=== PATIENT | female | born 1985 ===

== ENCOUNTER 2020-02-18 06:43 | Day surgery (SDC) | payer OTHER ==
[2020-02-17 11:09] LABS: BLOOD UREA NITROGEN,BUN 14 mg/dL (7.0-18.0); CARBON DIOXIDE,CO2 27.4 mmol/L (21.0-32.0); CHLORIDE,CL 102 mmol/L (98-107); GLUCOSE RANDOM 98 mg/dL (74-106); POTASSIUM,K 3.9 mmol/L (3.5-5.1); SODIUM,NA 138 mmol/L (136-145)
[2020-02-18] MEDS ORDERED: fentaNYL 250 MCG/5 ML SDV ONE (06:56)
[2020-02-18] MEDS ORDERED: Midazolam 1 MG/ML 2 ML SDV ONE (06:56)
[2020-02-18] MEDS ORDERED: Propofol 200 MG/20 ML SDV ONE (06:56)
[2020-02-18] MEDS ORDERED: Rocuronium Bromide 50 MG/5 ML Syringe ONE ×3 (06:59→10:23)
[2020-02-18] MEDS ORDERED: Glycopyrrolate 0.2 MG/ML SDV ONE (06:59)
[2020-02-18] MEDS ORDERED: Lidocaine 2% 5 ML SDV ONE (06:59)
[2020-02-18] MEDS ORDERED: Ondansetron 4 MG/2 ML SDV ONE (06:59)
[2020-02-18] MEDS: Lactated Ringers 1,000 ML IV SCH ×2 (07:20→22:57)
[2020-02-18] MEDS ORDERED: Methylene Blue 50 MG/10 ML Ampule ONE (07:20)
[2020-02-18] MEDS ORDERED: Fluorescein 5 ML Vial ONE (07:20)
[2020-02-18] MEDS ORDERED: Scopolamine 1.5 MG Transdermal Patch TRDERM PRN (07:21)
--- NOTE | 2020-02-18 07:21 | PCM.PREANE ---
Preanesthetic Assessment - Anesthesia/Transfusion/Family Hx Anesthesia History: No Prior Anesthesia Family History of Anesthesia Reaction: No Transfusion History: No Prior Transfusion(s) Intubation History: Unknown - Review of Systems General: No Symptoms Pulmonary: No Symptoms Cardiovascular: No Symptoms Gastrointestinal: No Symptoms Neurological: No Symptoms Other: Reports: None - Physical Assessment Vital Signs: Last Vital Signs Temp 36.2 C 02/18/20 06:55 Pulse 86 02/18/20 06:55 Resp 18 02/18/20 06:55 BP 121/81 02/18/20 06:55 Pulse Ox 99 02/18/20 06:55 Height: 5 ft 6 in Weight: 100.698 kg ASA Class: 2 Mental Status: Alert & Oriented x3 Airway Class: Mallampati = 3 Dentition: Reports: Normal Dentition Thyro-Mental Finger Breadths: 3 Mouth Opening Finger Breadths: 3 ROM/Head Extension: Full Lungs: Clear to Auscultation, Normal Respiratory Effort Cardiovascular: Regular Rate, Regular Rhythm - Lab Values: Laboratory Last Values WBC 7.65 K/uL (4.0-11.0) 02/17/20 10:20 RBC 4.76 M/uL (4.30-5.90) 02/17/20 10:20 Hgb 14.3 g/dL (12.0-16.0) 02/17/20 10:20 Hct 43.8 % (36.0-46.0) 02/17/20 10:20 MCV 92.0 fL (80.0-98.0) 02/17/20 10:20 MCH 30.0 pg (27.0-32.0) 02/17/20 10:20 MCHC 32.6 g/dL (31.0-37.0) 02/17/20 10:20 RDW Std Deviation 47.2 fl (28.0-62.0) 02/17/20 10:20 RDW Coeff of Jason 14 % (11.0-15.0) 02/17/20 10:20 Plt Count 327 K/uL (150-400) 02/17/20 10:20 MPV 10.30 fL (7.40-12.00) 02/17/20 10:20 Nucleated RBC % 0.0 /100WBC 02/17/20 10:20 Nucleated RBCs # 0 K/uL 02/17/20 10:20 Sodium 138 mmol/L (136-145) 02/17/20 10:20 Potassium 3.9 mmol/L (3.5-5.1) 02/17/20 10:20 Chloride 102 mmol/L (98-107) 02/17/20 10:20 Carbon Dioxide 27.4 mmol/L (21.0-32.0) 02/17/20 10:20 BUN 14 mg/dL (7.0-18.0) 02/17/20 10:20 Creatinine 0.8 mg/dL (0.6-1.0) 02/17/20 10:20 Est Cr Clr Drug Dosing 91.88 mL/min 02/17/20 10:20 Estimated GFR (MDRD) > 60.0 ml/min 02/17/20 10:20 Glucose 98 mg/dL (74-106) 02/17/20 10:20 Calcium 8.9 mg/dL (8.5-10.1) 02/17/20 10:20 Total Bilirubin 0.4 mg/dL (0.2-1.0) 02/17/20 10:20 AST 15 IU/L (15-37) 02/17/20 10:20 ALT 20 IU/L (14-63) 02/17/20 10:20 Alkaline Phosphatase 75 U/L (46-116) 02/17/20 10:20 Total Protein 7.4 g/dL (6.4-8.2) 02/17/20 10:20 Albumin 3.6 g/dL (3.4-5.0) 02/17/20 10:20 Globulin 3.8 g/dL (2.6-4.0) 02/17/20 10:20 Albumin/Globulin Ratio 0.9 (0.9-1.6) 02/17/20 10:20 HCG, Qual NEGATIVE (NEG) 02/17/20 10:20 Blood Type O POSITIVE 02/17/20 10:24 Antibody Screen NEGATIVE 02/17/20 10:24 - Allergies Allergies/Adverse Reactions: Allergies Allergy/AdvReac Type Severity Reaction Status Date / Time latex Allergy Rash Verified 02/12/20 13:15 Penicillins Allergy Facial Verified 02/12/20 13:15 Swelling - Blood Blood Available: No - Anesthesia Plan Pre-Op Medication Ordered: None - Acknowledgements Anesthesia Type Planned: General Anesthesia Pt an Appropriate Candidate for the Planned Anesthesia: Yes Alternatives and Risks of Anesthesia Discussed w Pt/Guardian: Yes Pt/Guardian Understands and Agrees with Anesthesia Plan: Yes PreAnesthesia Questionnaire HEENT History: Reports: Other (See Below) Other HEENT History: states has "always had ringing in ears" Other Respiratory History: thinks she may have sleep apnea- never tested Gastrointestinal History: Reports: GERD (improved by taking digestive enzymes) FOLDER TIER History: Reports: Ectopic Neurological History: Reports: Migraines (last one 2 weeks ago) Endocrine/Metabolic History: Reports: Obesity/BMI 30+ (BMI 35.8) Dermatologic History: Reports: Other (See Below) Other Dermatologic History: occasional yeast infection under breasts - Past Surgical History Head Surgeries/Procedures: Reports: None - SUBSTANCE USE Smoking Status *Q: Former Smoker Tobacco Use Within Last Twelve Months: No Recreational Drug Use History: Yes Recreational Drug Type: Reports: Marijuana/Hashish - HOME MEDS Home Medications: Home Meds Clara/Cell/Lipas/Malt/Prt/Lac/in [Digestive Enzymes Capsule] 1 cap PO TID 02/12/20 [History] Loratadine [Claritin] 10 mg PO DAILY 02/12/20 [History] - CURRENT (IN HOUSE) MEDS Current Meds: Current Medications Discontinued Medications Fentanyl (Sublimaze) Confirm Administered Dose 250 mcg .ROUTE .STK-MED ONE Stop: 02/18/20 06:57 Glycopyrrolate (Robinul) Confirm Administered Dose 0.2 mg .ROUTE .STK-MED ONE Stop: 02/18/20 07:00 Lidocaine (Xylocaine-Mpf 2%) Confirm Administered Dose 5 ml .ROUTE .STK-MED ONE Stop: 02/18/20 07:00 Midazolam HCl (Versed 1 Mg/Ml) Confirm Administered Dose 2 mg .ROUTE .STK-MED ONE Stop: 02/18/20 06:57 Ondansetron HCl (Zofran) Confirm Administered Dose 4 mg .ROUTE .STK-MED ONE Stop: 02/18/20 07:00 Propofol (Diprivan 20 Ml) Confirm Administered Dose 200 mg .ROUTE .STK-MED ONE Stop: 02/18/20 06:57 Rocuronium Hellier (Rocuronium Hellier) Confirm Administered Dose 50 mg .ROUTE .STK-MED ONE Stop: 02/18/20 07:00
[2020-02-18] MEDS ORDERED: Sugammadex Sodium 200 MG/2 ML VIAL ONE (07:25)
[2020-02-18] MEDS ORDERED: Dexamethasone 4 MG/ML 5 ML MDV ONE (07:41)
[2020-02-18] MEDS ORDERED: Ketorolac 30 MG/ML SDV ONE (07:43)
[2020-02-18] MEDS ORDERED: Acetaminophen 1,000 MG in Premix Bag 1 BAG IV PRN (08:23)
[2020-02-18] MEDS ORDERED: ceFAZolin 1 GM Vial ONE (08:44)
[2020-02-18] MEDS ORDERED: fentaNYL 100 MCG/2 ML SDV ONE (08:54)
[2020-02-18] MEDS ORDERED: HYDROmorphone 2 MG/ML Syringe ONE (09:05)
[2020-02-18] MEDS ORDERED: Sodium Chloride 0.9% 20 ML ONE (09:13)
[2020-02-18] MEDS ORDERED: Furosemide 40 MG/4 ML VIAL ONE (09:41)
[2020-02-18] MEDS ORDERED: Octyl 2-Cyanoacrylate 1 Tube ONE (10:56)
[2020-02-18] MEDS ORDERED: Ketorolac 30 MG/ML SDV IVPUSH PRN (11:14)
[2020-02-18] MEDS ORDERED: Morphine 4 MG/ML Syringe IVPUSH PRN (11:14)
[2020-02-18] MEDS ORDERED: Promethazine 25 MG/ML SDV IM PRN (11:14)
[2020-02-18] MEDS ORDERED: Ondansetron 4 MG/2 ML SDV IVPUSH PRN (11:14)
[2020-02-18] MEDS: fentaNYL 100 MCG/2 ML SDV IVPUSH PRN ×4 (11:47→12:30)
[2020-02-18] MEDS: Ondansetron 4 MG/2 ML SDV IVPUSH PRN ×3 (12:11→21:16)
--- NOTE | 2020-02-18 12:45 | PCM.POSTAN ---
POST ANESTHESIA ASSESSMENT - MENTAL STATUS Mental Status: Alert, Oriented - VITAL SIGNS Vital Signs: Last Vital Signs Temp 36.4 C 02/18/20 11:22 Pulse 81 02/18/20 12:38 Resp 10 L 02/18/20 12:38 BP 149/87 H 02/18/20 12:38 Pulse Ox 99 02/18/20 12:38 - RESPIRATORY Respiratory Status: Respiratory Rate WNL, Airway Patent, O2 Saturation Stable - CARDIOVASCULAR CV Status: Pulse Rate WNL, Blood Pressure Stable - GASTROINTESTINAL GI Status: No Symptoms - PAIN Pain Score: 5 - POST OP HYDRATION Hydration Status: Adequate & Stable - OBSERVATIONS Free Text/Narrative:: No anesthesia problems
[2020-02-18] MEDS: Acetaminophen/HYDROcodone 325-5 MG Tab PO PRN (22:25)
[2020-02-19] MEDS: Acetaminophen/HYDROcodone 325-5 MG Tab PO PRN ×3 (02:41→12:15)
--- NOTE | 2020-02-19 04:42 | OR ---
SURGEON: Niko Rodriguez MD DATE OF PROCEDURE: 02/18/2020 INDICATION FOR PROCEDURE: A 35-year-old presenting for hysterectomy. The patient has a history of menorrhagia, has tried hormonal therapy including OCPs and progesterone-only pills and was not able to tolerate them due to side effects. She strongly desires definitive surgical management and does not desire to have children in the future. PREOPERATIVE DIAGNOSIS: Menorrhalgia. POSTOPERATIVE DIAGNOSIS: Menorrhalgia. PROCEDURES PERFORMED: Laparoscopic assisted vaginal hysterectomy, bilateral salpingectomy, cystoscopy. ANESTHESIOLOGIST: Dr. Moser. ANESTHESIA: General anesthesia. FINDINGS: Normal-appearing uterus, bilateral ovaries and fallopian tubes. A small amount of adhesions of the bowel to the pelvic sidewall along the right adnexa. Pelvis normal-appearing without endometriosis. DESCRIPTION OF PROCEDURE: Informed consent was obtained. Risks of procedure discussed including bleeding, infection, DVTs, risk of injury to surrounding organs including bladder, bowel, ureters. The patient's questions answered and consent signed. She was taken to the operating room. She was given 2 g of ancef for prophylaxis and received SCDs. She underwent general anesthesia with no complications. Her legs were placed in dorsal lithotomy position and supported using stirrups, careful that we relieve all pressure points. She was prepped and draped in the usual fashion. A Yen catheter was placed. Bimanual exam showed a small anteverted uterus and no adnexal masses. A speculum was placed in the posterior vagina and the cervix was normal appearing. Anterior lip of the cervix was grasped with an Allis clamp. The cervix was serially dilated with Anand dilators to 6 mm and a HUMI uterine manipulator was placed in the uterine cavity. Attention was turned to the abdomen. A 5 mm incision was made at the umbilicus. 3 mL of 0.1% Marcaine was injected for local anesthesia. A Veress needle was used for entry. Intraperitoneal location was confirmed using saline drop test. The CO2 gas was initiated with low opening pressure and pneumoperitoneum established to 15 mmHg. A 5 mm Optiview trocar was placed under visualization with a laparoscope. No visceral or vascular injury was noted at the entry site. Survey of the abdomen showed normal-appearing uterus, bilateral fallopian tubes and ovaries. Small amount of adhesions was noted in the right adnexa of the bowel to the sidewall. No endometriosis implants were noted. The ureters were seen bilaterally and were noted to be away from the operative site. A 5 mm trocar was placed in the right lower quadrant under laparoscopic visualization, followed by another 5 mm trocar in the left lower quadrant. The patient was placed in Trendelenburg position. Blunt grasper was used to sweep the bowel away from the pelvis. The left fallopian tube was grasped with atraumatic grasper. The fallopian tube was from the mesosalpinx with the LigaSure device. The utero-ovarian artery was then ligated. The round ligament was cauterized and transected. The broad ligament was dissected towards the cervix with LigaSure device. The bladder flap was made carefully by dissecting the anterior peritoneum and the bladder away from the underlying pubocervical fascia. The uterine artery was skeletonized, then cauterized and ligated with good hemostasis. The same process was repeated on the right side of the uterus without complications. Attention was then turned to the vaginal portion of the hysterectomy. A weighted speculum was placed in the posterior vaginal wall. The cervix was grasped with Sarah clamps, and with downward traction, a circumferential incision was made at the vaginal mucosa with Bovie cautery. The vagina was bluntly dissected superiorly and inferiorly away from the cervix. The anterior peritoneum was visualized and entered with Metzenbaum scissors. Attempted to enter posteriorly, but there was difficulty due to the length of the cervix. Uterosacral ligaments were palpated, clamped with Cosme clamps, cut and ligated with 2-0 Vicryl suture bilaterally. The cardinal ligaments were ligated with 2-0 Vicryl suture in similar fashion. The uterus now had more descent and was able to access the posterior cul-de-sac more easily. The peritoneum was dissected bluntly and with Metzenbaum scissors, and the peritoneal cavity entered. A gooseneck speculum was placed in the posterior cul-de-sac. 1 additional bite was made on each side of the uterus with Cosme clamps and suture ligated. The uterus was then freed and brought out of the vagina entirely. The pedicles were examined and noted to be hemostatic. The uterosacral ligaments were attached to the lateral vaginal cuff using sutures saved previously. The vaginal cuff was closed with 0 Vicryl in running fashion with good hemostasis. A cystoscopy was then performed. She received 10mL of fluorescein IV to help visualize ureteral jets. The bladder was noted to be normal appearing without injury and bilateral ureteral jets were seen. The bladder was emptied with Yen catheter. The abdomen was again insufflated with CO2 gas. All pedicles were noted to be hemostatic. The abdomen was irrigated with normal saline and no areas of bleeding were noted. Rectal exam was performed and no injury was noted. Pneumoperitoneum was then relieved and all instruments were removed. The skin incision was closed with 4-0 Monocryl in subcuticular fashion. Dermabond was applied over the incision. The patient was awoken from anesthesia without difficulty and taken to the room in stable condition. TEREZA MEDELLIN /[id number] MTDD
[2020-02-19] MEDS: Ondansetron 4 MG/2 ML SDV IVPUSH PRN ×2 (06:24→12:17)
[2020-02-19 06:37] LABS: BLOOD UREA NITROGEN,BUN 11 mg/dL (7.0-18.0); CARBON DIOXIDE,CO2 27.7 mmol/L (21.0-32.0); CHLORIDE,CL 107 mmol/L (98-107); GLUCOSE RANDOM 120 mg/dL (74-106); POTASSIUM,K 3.9 mmol/L (3.5-5.1); SODIUM,NA 139 mmol/L (136-145)
--- NOTE | 2020-02-19 09:23 | PCM.PN ---
- General Info Date of Service: 02/19/20 Functional Status: Reports: Pain Controlled, Tolerating Diet, Ambulating, Urinating, Other (Nausea postop, controlled with zofran. ) - Review of Systems General: Reports: No Symptoms HEENT: Reports: No Symptoms Pulmonary: Reports: No Symptoms Cardiovascular: Reports: No Symptoms Gastrointestinal: Reports: No Symptoms Genitourinary: Reports: No Symptoms Musculoskeletal: Reports: No Symptoms Skin: Reports: No Symptoms Neurological: Reports: No Symptoms Psychiatric: Reports: No Symptoms - Patient Data Vitals - Most Recent: Last Vital Signs Temp 36.7 C 02/19/20 08:00 Pulse 72 02/19/20 08:00 Resp 15 02/19/20 03:00 BP 109/61 02/19/20 08:00 Pulse Ox 96 02/19/20 08:00 Weight - Most Recent: 222 lb I&O - Last 24 Hours: Intake & Output 02/18/20 02/19/20 02/19/20 22:59 06:59 14:59 Intake Total 2121 Output Total 475 1500 Balance -475 621 Lab Results Last 24 Hours: Laboratory Results - last 24 hr 02/19/20 02/19/20 Range/Units 05:56 05:56 WBC 12.08 H (4.0-11.0) K/uL RBC 3.95 L (4.30-5.90) M/uL Hgb 11.8 L (12.0-16.0) g/dL Hct 36.8 (36.0-46.0) % MCV 93.2 (80.0-98.0) fL MCH 29.9 (27.0-32.0) pg MCHC 32.1 (31.0-37.0) g/dL RDW Std Deviation 47.9 (28.0-62.0) fl RDW Coeff of Jason 14 (11.0-15.0) % Plt Count 325 (150-400) K/uL MPV 10.00 (7.40-12.00) fL Neut % (Auto) 75.1 (48.0-80.0) % Lymph % (Auto) 18.4 (16.0-40.0) % Dickens % (Auto) 6.4 (0.0-15.0) % Eos % (Auto) 0.0 (0.0-7.0) % Baso % (Auto) 0.1 (0.0-1.5) % Neut # (Auto) 9.1 H (1.4-5.7) K/uL Lymph # (Auto) 2.2 (0.6-2.4) K/uL Dickens # (Auto) 0.8 (0.0-0.8) K/uL Eos # (Auto) 0.0 (0.0-0.7) K/uL Baso # (Auto) 0.0 (0.0-0.1) K/uL Nucleated RBC % 0.0 /100WBC Nucleated RBCs # 0 K/uL Sodium 139 (136-145) mmol/L Potassium 3.9 (3.5-5.1) mmol/L Chloride 107 (98-107) mmol/L Carbon Dioxide 27.7 (21.0-32.0) mmol/L BUN 11 (7.0-18.0) mg/dL Creatinine 0.9 (0.6-1.0) mg/dL Est Cr Clr Drug Dosing 81.67 mL/min Estimated GFR (MDRD) > 60.0 ml/min Glucose 120 H (74-106) mg/dL Calcium 8.2 L (8.5-10.1) mg/dL Total Bilirubin 0.5 (0.2-1.0) mg/dL AST 12 L (15-37) IU/L ALT 19 (14-63) IU/L Alkaline Phosphatase 55 (46-116) U/L Total Protein 6.2 L (6.4-8.2) g/dL Albumin 3.0 L (3.4-5.0) g/dL Globulin 3.2 (2.6-4.0) g/dL Albumin/Globulin Ratio 0.9 (0.9-1.6) Med Orders - Current: Current Medications Hydrocodone Bitart/Acetaminophen (Sas[place] 325-5 Mg) 1 tab PO Q3H PRN PRN Reason: Pain (moderate 4-6) Last Admin: 02/19/20 08:16 Dose: 1 tab Documented by: Lactated Ringer's (Ringers, Lactated) 1,000 mls @ 100 mls/hr IV ASDIRECTED [facility] Last Admin: 02/18/20 22:57 Dose: 100 mls/hr Documented by: Acetaminophen 1,000 mg/ Premix 100 mls @ 400 mls/hr IV Q6H PRN PRN Reason: Pain Last Admin: 02/18/20 12:16 Dose: 400 mls/hr Documented by: Ketorolac Tromethamine (Toradol) 30 mg IVPUSH Q6H PRN PRN Reason: Pain (severe 7-10) Stop: 02/23/20 11:14 Last Admin: 02/18/20 16:59 Dose: 30 mg Documented by: Morphine Sulfate (Morphine) 4 mg IVPUSH Q2H PRN PRN Reason: Pain (severe 7-10) Last Admin: 02/18/20 18:21 Dose: 4 mg Documented by: Ondansetron HCl (Zofran) 4 mg IVPUSH Q4H PRN PRN Reason: Nausea Last Admin: 02/19/20 06:24 Dose: 4 mg Documented by: Promethazine HCl (Phenergan) 25 mg IM Q6H PRN PRN Reason: Nausea/Vomiting Last Admin: 02/18/20 11:57 Dose: 25 mg Documented by: Scopolamine (Transderm-Scop) 1.5 mg TRDERM Q72H PRN PRN Reason: Nausea Last Admin: 02/18/20 07:48 Dose: 1.5 mg Documented by: Discontinued Medications Cefazolin Sodium (Ancef) Confirm Administered Dose 2 gm .ROUTE .STK-MED ONE Stop: 02/18/20 08:45 Dexamethasone (Dexamethasone) Confirm Administered Dose 20 mg .ROUTE .STK-MED O NE Stop: 02/18/20 07:42 Fentanyl (Sublimaze) Confirm Administered Dose 250 mcg .ROUTE .STK-MED ONE Stop: 02/18/20 06:57 Fentanyl (Sublimaze) 50 mcg IVPUSH Q5M PRN PRN Reason: Pain Last Admin: 02/18/20 11:54 Dose: 50 mcg Documented by: Fentanyl (Sublimaze) Confirm Administered Dose 100 mcg .ROUTE .STK-MED ONE Stop: 02/18/20 08:55 Fentanyl (Sublimaze) 50 - 100 mcg IVPUSH Q5M PRN PRN Reason: Pain (severe 7-10) Last Admin: 02/18/20 12:30 Dose: 50 mcg Documented by: Fluorescein Sodium (Ak-Fluor) Confirm Administered Dose 5 ml .ROUTE .STK-MED ONE Stop: 02/18/20 07:21 Furosemide (Lasix) Confirm Administered Dose 40 mg .ROUTE .[facility]-MED ONE Stop: 02/18/20 09:42 Glycopyrrolate (Robinul) Confirm Administered Dose 0.2 mg .ROUTE .ST-MED ONE Stop: 02/18/20 07:00 Hydromorphone HCl (Dilaudid) Confirm Administered Dose 2 mg .ROUTE .[facility]-MED ONE Stop: 02/18/20 09:06 Sodium Chloride (Normal Saline) Confirm Administered Dose 20 mls @ as directed .ROUTE .[facility]-MED ONE Stop: 02/18/20 09:14 Acetaminophen (Ofirmev) Confirm Administered Dose 100 mls @ as directed .ROUTE .[facility]-MED ONE Stop: 02/18/20 12:15 Ketorolac Tromethamine (Toradol) Confirm Administered Dose 30 mg .ROUTE .[facility]-MED ONE Stop: 02/18/20 07:44 Lidocaine (Xylocaine-Mpf 2%) Confirm Administered Dose 5 ml .ROUTE .[facility]-MED ONE Stop: 02/18/20 07:00 Methylene Blue (Provayblue) Confirm Administered Dose 0 mg .ROUTE .[facility]-MED ONE Stop: 02/18/20 07:21 Midazolam HCl (Versed 1 Mg/Ml) Confirm Administered Dose 2 mg .ROUTE .[facility]-MED ONE Stop: 02/18/20 06:57 Octyl Cyanoacrylate (Dermabond Advance) Confirm Administered Dose 1 applic .ROUTE .[facility]-MED ONE Stop: 02/18/20 10:57 Ondansetron HCl (Zofran) Confirm Administered Dose 4 mg .ROUTE .[facility]-MED ONE Stop: 02/18/20 07:00 Ondansetron HCl (Zofran) 4 mg IVPUSH Q6H PRN PRN Reason: Nausea/Vomiting Propofol (Diprivan 20 Ml) Confirm Administered Dose 200 mg .ROUTE .[facility]-MED ONE Stop: 02/18/20 06:57 Rocuronium [place] (Rocuronium [place]mlenton) Confirm Administered Dose 50 mg .ROUTE . [facility]-MED ONE Stop: 02/18/20 07:00 Rocuronium [place] (Rocuronium [place]) Confirm Administered Dose 50 mg .ROUTE .ST-MED ONE Stop: 02/18/20 08:49 Rocuronium [place] (Rocuronium [place]) Confirm Administered Dose 50 mg .ROUTE .STK-MED ONE Stop: 02/18/20 10:24 Sugammadex Sodium (Bridion) Confirm Administered Dose 200 mg .ROUTE .STK-MED ONE Stop: 02/18/20 07:26 - Exam General: Alert, Oriented, Cooperative, No Acute Distress HEENT: Pupils Equal, Pupils Reactive Neck: Supple, Trachea Midline, No JVD Lungs: Normal Respiratory Effort GI/Abdominal Exam: Soft, Non-Tender, No Distention Back Exam: Normal Inspection, Full Range of Motion Extremities: Normal Inspection, Normal Range of Motion, Non-Tender, No Pedal Edema Skin: Warm, Dry, Intact Wound/Incisions: Healing Well Neurological: No New Focal Deficit Psy/Mental Status: Alert, Normal Affect, Normal Mood Sepsis Event Note - Evaluation Sepsis Screening Result: No Definite Risk - Focused Exam Vital Signs: Vital Signs Temp Pulse Resp BP Pulse Ox 02/19/20 08:00 36.7 C 72 109/61 96 02/19/20 03:00 37.2 C 77 15 122/61 95 Date Exam was Performed: 02/19/20 Time Exam was Performed: 09:19 - Problem List Review Problem List Initiated/Reviewed/Updated: Yes - My Orders Last 24 Hours: My Active Orders 02/18/20 11:14 Patient Status [ADT] Routine Notify Provider Intake and Out [RC] ASDIRECTED Notify Provider Vital Signs [RC] ASDIRECTED Oxygen Therapy [RC] ASDIRECTED RT Incentive Spirometry [RC] Q2HWA Up With Assistance [RC] PER UNIT ROUTINE Up ad Lorna [RC] PER UNIT ROUTINE Urinary Catheter Removal [RC] DAILY Vital Signs [RC] Q4H Acetaminophen/HYDROcodone [S[place]akwa 325-5 MG] 1 tab PO Q3H PRN Ketorolac [Toradol] 30 mg IVPUSH Q6H PRN Morphine 4 mg IVPUSH Q2H PRN Promethazine [Phenergan] 25 mg IM Q6H PRN Peripheral IV Discontinue [OM.PC] Routine Sequential Compression Device [OM.PC] Per Unit Routine Resuscitation Status Routine 02/18/20 11:15 Antiembolic Devices [RC] PER UNIT ROUTINE 02/18/20 11:19 Ondansetron [Zofran] 4 mg IVPUSH Q4H PRN 02/18/20 Dinner Regular Diet [DIET] 02/19/20 09:12 Ready for Discharge [RC] PER UNIT ROUTINE - Assessment Assessment:: 35yo POD1 s/p LAVH, bilateral salpingectomy, cystoscopy. Stable and recovering well. - Plan Plan:: - vital stable - good UO, has not voided yet - Hgb 11, stable, minimal bleeding - nausea postop controlled, hx of nausea with narcotics. Has been on Sasakwa and zofran - reviewed postop care instructions. Will send zofran and scopolamine patch for nausea. Follow up scheduled for 2 weeks.
== END 2020-02-19 12:40 | disposition home or self-care (01) ==
LOC: MW.SDS 06:43 → MW.MS 08:42 → MW.SDS 02-19 12:40
PROVIDERS: ATTEND Obstetrics & Gynecology
DX: N92.0 Excessive and frequent menstruation with regular cycle (principal); N73.6 Female pelvic peritoneal adhesions (postinfective); K21.9 Gastro-esophageal reflux disease without esophagitis; E66.9 Obesity, unspecified; Z87.891 Personal history of nicotine dependence; Z88.0 Allergy status to penicillin; Z91.048 Other nonmedicinal substance allergy status; Z68.35 Body mass index [BMI] 35.0-35.9, adult
CPT/HCPCS: 00944; 36415; 80053; 84703; 85025; 85027; 86850; 86900; 86901; 88307; A9270-GY; J0131; J0690; J1100; J1170; J1885; J1940; J2001; J2250; J2270; J2405; J2550; J2704; J3010; J3490; J7120